=== PATIENT | female | born 1960 | race Caucasian/White ===

== ENCOUNTER → 2022-08-09 | Outpatient (CLI) | payer OTHER ==
--- NOTE | 2022-08-10 08:47 | MM ---
Reason for Exam: Screening (asymptomatic). Last mammogram was performed 6 year(s) and 3 month(s) ago. Patient History: Menarche at age 11. First Full-Term at age 18. Postmenopausal. Patient has history of breast feeding. Patient used Hormonal Contraceptives for 6 years. Risk Values: Kiara 5 year model risk: 1.4%. NCI Lifetime model risk: 5.8%. Prior Study Comparison: 04/09/2013 Bilateral Screening Mammogram, [facility]. 05/05/2015 Bilateral Screening Mammogram, [facility]. 05/10/2016 Bilateral Screening Mammogram, [facility]. Tissue Density: There are scattered fibroglandular densities. Findings: Analyzed By CAD. There is no suspicious group of microcalcifications or new suspicious mass in either breast. Chronic nodularity within the right breast. No significant change from prior exams. Overall Assessment: Benign, BI-RAD 2 Management: Screening Mammogram of both breasts in 1 year. A clinical breast exam by your physician is recommended on an annual basis and results should be correlated with mammographic findings. Electronically signed and approved by: Lion Downs D.O.
--- NOTE | 2022-08-10 08:47 | MM ---
Reason for Exam: Screening (asymptomatic). Last mammogram was performed 6 year(s) and 3 month(s) ago. Patient History: Menarche at age 11. First Full-Term at age 18. Postmenopausal. Patient has history of breast feeding. Patient used Hormonal Contraceptives for 6 years. Risk Values: Kiara 5 year model risk: 1.4%. NCI Lifetime model risk: 5.8%. Prior Study Comparison: 04/09/2013 Bilateral Screening Mammogram, [facility]. 05/05/2015 Bilateral Screening Mammogram, [facility]. 05/10/2016 Bilateral Screening Mammogram, [facility]. Tissue Density: There are scattered fibroglandular densities. Findings: Analyzed By CAD. There is no suspicious group of microcalcifications or new suspicious mass in either breast. Chronic nodularity within the right breast. No significant change from prior exams. Overall Assessment: Benign, BI-RAD 2 Management: Screening Mammogram of both breasts in 1 year. A clinical breast exam by your physician is recommended on an annual basis and results should be correlated with mammographic findings. Electronically signed and approved by: Lion Downs D.O.
== END | disposition home or self-care (01) ==
LOC: RADMAMWWP 16:23
PROVIDERS: ATTEND Obstetrics & Gynecology
DX: Z12.31 Encounter for screening mammogram for malignant neoplasm of breast (principal); Z78.0 Asymptomatic menopausal state
CPT/HCPCS: 77067

== ENCOUNTER → 2022-10-12 | Outpatient (CLI) | payer OTHER ==
[2022-10-12 18:55] LABS: HCT 42.7 % (37.2-46.3); HGB 14.1 g/dL (12.0-15.0); MCH 30.2 pg (27.0-32.0); MCV 91.4 fL (80.0-97.0); Mean Platelet Volume 11.3 fL (9.5-12.2); NRBC Per 100 WBC 0 /100 WBCS (0.0-0.0); Platelet Count 281 X 10*3/uL (140-440); RBC 4.67 X 10*6/uL (4.10-5.20); RDW 13.2 % (11.5-14.5); WBC 8.89 X 10*3/uL (4.50-10.00)
[2022-10-12 19:12] LABS: Appearance,Urine Clear (Clear); Bilirubin,Urine Negative (Negative); Blood,Urine Negative (Negative); Color,Urine Yellow (Yellow); Ketones,Urine Negative (Negative); Nitrite,Urine Negative (Negative); PH, Urine 5.5 (5.0-8.0); Specific Gravity,Urine 1.015 (1.001-1.030); Urobilinogen,Urine 0.2 (0.2,1.0)
[2022-10-12 19:27] LABS: ALT 47 U/L (8-44); AST 31 U/L (13-35); African American GFR (CKD) 94.6 (60.0-200.0); Albumin 4.6 g/dL (3.8-4.9); Albumin/Globulin Ratio 1.88 (1.60-3.17); Alkaline Phosphatase 171 U/L (41-126); BUN/Creat Ratio 20.13 Ratio (12.00-20.00); Blood Urea Nitrogen 15.5 mg/dL (9.0-27.0); Carbon Dioxide 25.3 mmol/L (20.0-27.5); Chloride 106 mmol/L (96-109); Chol/HDL Ratio 4.28 Ratio; Globulin 2.5 g/dL (1.6-3.3); Glucose 102 mg/dL (70-110); LDL Cholesterol,Calculated 131.1 mg/dL (0.0-131.0); Non-African American GFR(CKD) 81.6 (60.0-200.0); Potassium 4.3 mmol/L (3.5-5.5); Sodium 143 mmol/L (135-145); Total Protein 7.1 g/dL (6.2-8.2)
== END | disposition home or self-care (01) ==
LOC: LABWHC1 11:11
PROVIDERS: ATTEND Family Medicine
DX: Z00.00 Encounter for general adult medical examination without abnormal findings (principal); E66.9 Obesity, unspecified
CPT/HCPCS: 36415; 80053; 80061; 81003; 82306; 83036; 84443; 85027

== ENCOUNTER → 2022-10-19 | Outpatient (CLI) | payer OTHER ==
[2022-10-19 18:41] LABS: ALT 72 U/L (8-44); Alkaline Phosphatase 221 U/L (41-126)
== END | disposition home or self-care (01) ==
LOC: LABWHC1 09:54
PROVIDERS: ATTEND Family Medicine
DX: R89.9 Unspecified abnormal finding in specimens from other organs, systems and tissues (principal)
CPT/HCPCS: 36415; 84075; 84460

== ENCOUNTER → 2022-10-30 | Outpatient (CLI) | payer OTHER ==
[2022-10-30 10:48] LABS: ALT 42 U/L (8-44); AST 21 U/L (13-35); Albumin 4.7 g/dL (3.8-4.9); Albumin/Globulin Ratio 2.04 (1.60-3.17); Alkaline Phosphatase 169 U/L (41-126); Bilirubin, Conjugated <0.20 mg/dL (0.20-0.40); GGT 155 U/L (0-38); Globulin 2.3 g/dL (1.6-3.3)
== END | disposition home or self-care (01) ==
LOC: LABWHC1 07:54
PROVIDERS: ATTEND Family Medicine
DX: R89.9 Unspecified abnormal finding in specimens from other organs, systems and tissues (principal)
CPT/HCPCS: 36415; 80076; 82977

== ENCOUNTER → 2022-11-20 | Outpatient (CLI) | payer OTHER ==
[2022-11-20 15:42] LABS: Alkaline Phosphatase 166 U/L (41-126); GGT 166 U/L (0-38)
== END | disposition home or self-care (01) ==
LOC: LABWHC1 08:21
PROVIDERS: ATTEND Family Medicine
DX: R89.9 Unspecified abnormal finding in specimens from other organs, systems and tissues (principal)
CPT/HCPCS: 36415; 82977; 84075

== ENCOUNTER → 2023-11-27 | Outpatient (CLI) | payer MEDICARE, BC ==
--- NOTE | 2023-11-28 14:48 | MM ---
Reason for Exam: Screening (asymptomatic). Last mammogram was performed 1 year(s) and 4 month(s) ago. Patient History: Menarche at age 11. First Full-Term at age 18. Postmenopausal. Patient has history of breast feeding. Patient used Hormonal Contraceptives for 6 years. Risk Values: Kiara 5 year model risk: 1.5%. NCI Lifetime model risk: 5.6%. Prior Study Comparison: 05/05/2015 Bilateral Screening Mammogram, [facility]. 05/10/2016 Bilateral Screening Mammogram, [facility]. 08/09/2022 Bilateral MG screening mammo w CAD, [facility]. Tissue Density: There are scattered fibroglandular densities. Findings: Analyzed By CAD. There is no suspicious group of microcalcifications or new suspicious mass. Overall Assessment: Negative, BI-RAD 1 Management: Screening Mammogram of both breasts in [address] [facility] will attempt to contact patient to return for supplemental views and ultrasound if indicated. Patient should continue monthly self-breast exams. A clinical breast exam by your physician is recommended on an annual basis. This exam should not preclude additional follow-up of suspicious palpable abnormalities. Note on Kiara scores and lifetime risk: 1. A Kiara score greater than 3% is considered moderate risk. If this is the case, consider specialist referral to assess eligibility for a risk reducing agent. 2. If overall lifetime risk for the development of breast cancer is 20% or higher, the patient may qualify for future screening with alternating mammogram and breast MRI. Electronically signed and approved by: Homar Westbrook DO
== END | disposition home or self-care (01) ==
LOC: RADMAMWWP 07:40
PROVIDERS: ATTEND Family Medicine
DX: Z12.31 Encounter for screening mammogram for malignant neoplasm of breast (principal); Z78.0 Asymptomatic menopausal state
CPT/HCPCS: 77063; 77067

== ENCOUNTER 2025-02-17 16:06 | Inpatient (IN) | payer MEDICARE, BC ==
[2025-02-17 16:33] LABS: Basophils # (A) 0.11 10*3/uL (0.00-0.10); Basophils % (A) 1.3 %; Eosinophils # (A) 0.24 10*3/uL (0.04-0.35); Eosinophils % (A) 2.9 %; HCT 40.7 % (37.2-46.3); HGB 14.3 g/dL (12.0-15.0); Lymphocytes # (A) 1.86 10*3/uL (0.90-5.00); Lymphocytes % (A) 22.7 %; MCH 31.3 pg (27.0-32.0); MCHC 35.1 g/dL (32.0-37.0); MCV 89.1 fL (80.0-97.0); Mean Platelet Volume 11.5 fL (9.5-12.2); Monocytes # (A) 0.71 10*3/uL (0.20-1.00); Monocytes % (A) 8.7 %; Neutrophils # (A) 5.25 10*3/uL (1.80-7.70); Neutrophils % (A) 64.2 %; Platelet Count 258 10*3/uL (140-440); RBC 4.57 10*6/uL (4.10-5.20); RDW 13.4 % (11.5-14.5); WBC 8.19 10*3/uL (4.50-10.00)
[2025-02-17 16:42] LABS: ALT 34 U/L (4-34); AST 28 U/L (14-36); African American GFR (CKD) 83 (>60 ml/min/1.73 sqM); Albumin 4.5 g/dL (3.5-5.0); Alkaline Phosphatase 131 U/L (38-126); Anion Gap 12 mmol/L; Blood Urea Nitrogen 15 mg/dL (7-17); Calcium 10.1 mg/dL (8.4-10.2); Carbon Dioxide 22 mmol/L (22-30); Chloride 107 mmol/L (98-107); Glucose 97 mg/dL (74-99); Non-African American GFR(CKD) 72 (>60 ml/min/1.73 sqM); Potassium 3.6 mmol/L (3.5-5.1); Sodium 141 mmol/L (137-145); Total Bilirubin 0.9 mg/dL (0.2-1.3); Total Protein 7.1 g/dL (6.3-8.2)
[2025-02-17 16:57] LABS: INR 0.9 (<1.2); Partial Thromboplastin Time 22.1 sec (22.0-30.0); Prothrombin Time 10.1 sec (10.0-12.5)
--- NOTE | 2025-02-17 17:07 | ED ---
General Adult HPI - General Chief complaint: Arrhythmia/Palpitations Stated complaint: Abn EKG Time Seen by Provider: 02/17/25 16:40 Source: patient Limitations: no limitations - History of Present Illness Initial comments: Patient is 65-year-old female no significant past medical history presenting today at the direction of her primary care providers office after being found to be in A-fib with RVR. Patient is currently asymptomatic. She states she has had some exertional dyspnea when going upstairs for some time however is unsure how long this has been ongoing. 4. Patient was seeing her PCP today for her annual physical and was found to be in A-fib with RVR. Patient denies dizziness, lightheadedness, palpitations, shortness of breath, chest pain, recent fevers or chills, vomiting, diarrhea, melena, hematochezia, abdominal pain, leg swelling. She is a non-smoker. Rarely uses alcohol. Denies illicit drug use. No recent travel surgeries or hospitalizations. No history of cancer. No history clotting disorders. - Related Data Previous Rx's Medication Instructions Recorded Apixaban [Eliquis] 5 mg PO BID #60 tab 02/20/25 Losartan [Cozaar] 50 mg PO HS #30 tab 02/20/25 Metoprolol Tartrate [Lopressor] 50 mg PO BID #60 tab 02/20/25 Spironolactone [Aldactone] 25 mg PO DAILY #30 tab 02/20/25 Allergies Allergy/AdvReac Type Severity Reaction Status Date / Time No Known Allergies Allergy Verified 02/17/25 16:58 Review of Systems ROS Statement: Those systems with pertinent positive or pertinent negative responses have been documented in the HPI. ROS Other: All systems not noted in ROS Statement are negative. Past Medical History Past Medical History: No Reported History History of Any Multi-Drug Resistant Organisms: None Reported Past Surgical History: Cholecystectomy, Tubal Ligation Additional Past Surgical History / Comment(s): cervical fusion Past Psychological History: No Psychological Hx Reported Past Alcohol Use History: None Reported Past Drug Use History: None Reported General Exam - General Exam Comments Initial Comments: PE: CONSTITUTIONAL: [no apparent distress, well appearing] SKIN: [warm, dry, no jaundice, hives or petechiae] EYES:[ pupils are equally round, extraocular movements intact without nystagmus, clear conjunctiva, non-icteric sclera] HENT: [normocephalic, atraumatic, moist mucus membranes, oropharynx clear without exudates] NECK: , [Full range of motion, normal appearance] PULMONARY: [clear to auscultation without wheezes, rhonchi, or rales, normal excursion, no accessory muscle use and no stridor] CARDIOVASCULAR:[tachcyardia, irregularly irregular rate and rhythm, normal S1 and S2. No appreciated murmurs, rubs or gallops. Strong radial pulses with intact distal perfusion. No lower extremity edema] GASTROINTESTINAL: [soft, active bowel sounds throughout, non-tender, non- distended, no palpable masses, no rebound or guarding. No hepatosplenomegaly] GENITOURINARY: MUSCULOSKELETAL: [Extremities have no gross deformity, no edema, redness, or swelling. No calf swelling ] NEUROLOGIC: [_a/o x 3, GCS 15, normal mentation and speech. Moves all extremities x 4 without motor or sensory deficit] PSYCHIATRIC:[ _normal mood and affect, thought process is clear and linear] Limitations: no limitations Course Vital Signs 02/17/25 02/17/25 02/18/25 16:12 17:38 02:00 Temperature 98.2 F Pulse Rate 122 H 109 H 79 Respiratory 18 12 17 Rate Blood Pressure 161/92 162/104 149/109 O2 Sat by Pulse 94 L 95 95 Oximetry 02/18/25 02/18/25 02/18/25 06:44 07:26 09:11 Temperature Pulse Rate 87 86 90 Respiratory 17 16 14 Rate Blood Pressure 150/114 163/113 150/98 O2 Sat by Pulse 94 L 94 L 96 Oximetry 02/18/25 11:07 Temperature Pulse Rate 89 Respiratory 18 Rate Blood Pressure 157/99 O2 Sat by Pulse 98 Oximetry EKG Findings - EKG Comments: EKG Findings:: A-fib with RVR, rate 113 bpm, QT/QTc 324/391 ms, normal axis, no clear ST elevations or depressions Medical Decision Making - Medical Decision Making Was pt. sent in by a medical professional or institution (, PA, LAMP INSPECTOR, urgent care, hospital, or half-way...) When possible be specific @ -[Patient was sent in by her PCP Dr. Hay Did you speak to anyone other than the patient for history (EMS, parent, family, police, friend...)? What history was obtained from this source @ -No Did you review nursing and triage notes (agree or disagree)? Why? @ -I reviewed and agree with nursing and triage notes Were old charts reviewed (outside hosp., previous admission, EMS record, old EKG, old radiological studies, urgent care reports/EKG's, half-way records)? Report findings @ -Medical records reviewed Differential Diagnosis (chest pain, altered mental status, abdominal pain women, abdominal pain men, vaginal bleeding, weakness, fever, dyspnea, syncope, headache, dizziness, GI bleed, back pain, seizure, CVA, palpatations, mental health, musculoskeletal)? @Differential Palpitations Ventricular arrhythmias, atrial arrhythmias, myocardial infarction, anemia, thyrotoxicosis, electrolyte imbalance, hypokalemia, pulmonary embolism, pulmonary disease, drugs, alcohol, anxiety, stress.... This is not meant to be an all-inclusive list. EKG interpreted by me (3pts min.). @ -As above X-rays interpreted by me (1pt min.). @ -None done CT interpreted by me (1pt min.). @ -Personally reviewed CT chest, I see no evidence of pulmonary embolism, bilateral lower lobe patchy opacities noted, I agree with radiologist interpretation U/S interpreted by me (1pt. min.). @ -None done What testing was considered but not performed or refused? (CT, X-rays, U/S, labs)? Why? @ -None What meds were considered but not given or refused? Why? @ -None Did you discuss the management of the patient with other professionals (professionals i.e. , PA, LAMP INSPECTOR, lab, RT, psych nurse, director social, emergency room technician, teacher, officer lieutenant, pillowcase cutter)? Give summary @ -No Was smoking cessation discussed for >3mins.? @ -No Was critical care preformed (if so, how long)? @Yes 35 minutes Were there social determinants of health that impacted care today? How? (Homelessness, low income, unemployed, alcoholism, drug addiction, transportation, low edu. Level, literacy, decrease access to med. care, retirement, rehab)? @ -No Was there de-escalation of care discussed even if they declined (Discuss DNR or withdrawal of care, Hospice)? @ -No What co-morbidities impacted this encounter? (DM, HTN, Smoking, COPD, CAD, Cancer, CVA, ARF, Chemo, Hep., AIDS, mental health diagnosis, sleep apnea, morbid obesity)? @ -None Was patient admitted / discharged? Hospital course, mention meds given and route, prescriptions, significant lab abnormalities, going to OR and other pertinent info. @ -Admission- Patient is a previously healthy 65 y/o female presenting at the direction of her PCP after being found to be in new onset afib, with RvR. Will be given weight based cardizem bolus of 24 mg, cardizem gtt. On reassessment, patient's rate is currently controlled on a Cardizem infusion of 5 mg/h, Cardizem bolus was not required. Labs are significant for D-dimer 0.63. CT PE study is obtained. Patient be given oral Cardizem of 30 mg. Labs reviewed. Grossly within normal limits. Abnormal values not concerning for acute pathology related to presenting complaint. CT showed possible bilateral atypical PNA however pt is not having symptoms consistent with this. Updated patient to findings. Case discussed with Dr. Power, kindly accepted patient for admission. Undiagnosed new problem with uncertain prognosis? @ -No Drug Therapy requiring intensive monitoring for toxicity (Heparin, Nitro, Insulin, Cardizem)? cardizem, heparin Were any procedures done? @ -No Diagnosis/symptom? atrial fibrillation with RvR Acute, or Chronic, or Acute on Chronic? @acute Uncomplicated (without systemic symptoms) or Complicated (systemic symptoms)? complicated Side effects of treatment? @ -No Exacerbation, Progression, or Severe Exacerbation? @ -No Poses a threat to life or bodily function? How? (Chest pain, [place], [place], pneumonia, PE, COPD, DKA, ARF, appy, cholecystitis, CVA, Diverticulitis, Homicidal, Suicidal, threat to staff... and all critical care pts) @Yes if left untreated could lead to cardiac failure and - Lab Data Result diagrams: 02/17/25 16:21 02/17/25 16:21 Lab Results 02/17/25 02/17/25 02/17/25 Range/Units 16:21 16:21 16:21 WBC 8.19 (4.50-10.00) 10*3/uL RBC 4.57 (4.10-5.20) 10*6/uL Hgb 14.3 (12.0-15.0) g/dL Hct 40.7 (37.2-46.3) % MCV 89.1 (80.0-97.0) fL MCH 31.3 (27.0-32.0) pg MCHC 35.1 (32.0-37.0) g/dL Plt Count 258 (140-440) 10*3/uL MPV 11.5 (9.5-12.2) fL Immature Gran % (Auto) 0.2 % Neutrophils % 64.2 % Lymphocytes % 22.7 % Monocytes % 8.7 % Eosinophils % 2.9 % Basophils % 1.3 % Immature Gran # 0.02 (0.00-0.04) 10*3/uL Neutrophils # 5.25 (1.80-7.70) 10*3/uL Lymphocytes # 1.86 (0.90-5.00) 10*3/uL Monocytes # 0.71 (0.20-1.00) 10*3/uL Eosinophils # 0.24 (0.04-0.35) 10*3/uL Basophils # 0.11 H (0.00-0.10) 10*3/uL PT 10.1 (10.0-12.5) sec INR 0.9 (<1.2) APTT 22.1 (22.0-30.0) sec D-Dimer (<0.60) mg/L FEU Sodium 141 (137-145) mmol/L Potassium 3.6 (3.5-5.1) mmol/L Chloride 107 (98-107) mmol/L Carbon Dioxide 22 (22-30) mmol/L Anion Gap 12 mmol/L BUN 15 (7-17) mg/dL Creatinine 0.84 (0.52-1.04) mg/dL Est GFR (CKD-EPI)AfAm 83 (>60 ml/min/1.73 sqM) Est GFR (CKD-EPI)NonAf 72 (>60 ml/min/1.73 sqM) Glucose 97 (74-99) mg/dL Calcium 10.1 (8.4-10.2) mg/dL Magnesium 2.0 (1.6-2.3) mg/dL Total Bilirubin 0.9 (0.2-1.3) mg/dL AST 28 (14-36) U/L ALT 34 (4-34) U/L Alkaline Phosphatase 131 H (38-126) U/L Troponin I (0.000-0.034) ng/mL NT-Pro-B Natriuret Pep pg/mL Total Protein 7.1 (6.3-8.2) g/dL Albumin 4.5 (3.5-5.0) g/dL TSH (0.465-4.680) mIU/L 02/17/25 02/17/25 02/17/25 Range/Units 16:21 16:21 16:21 WBC (4.50-10.00) 10*3/uL RBC (4.10-5.20) 10*6/uL Hgb (12.0-15.0) g/dL Hct (37.2-46.3) % MCV (80.0-97.0) fL MCH (27.0-32.0) pg MCHC (32.0-37.0) g/dL Plt Count (140-440) 10*3/uL MPV (9.5-12.2) fL Immature Gran % (Auto) % Neutrophils % % Lymphocytes % % Monocytes % % Eosinophils % % Basophils % % Immature Gran # (0.00-0.04) 10*3/uL Neutrophils # (1.80-7.70) 10*3/uL Lymphocytes # (0.90-5.00) 10*3/uL Monocytes # (0.20-1.00) 10*3/uL Eosinophils # (0.04-0.35) 10*3/uL Basophils # (0.00-0.10) 10*3/uL PT (10.0-12.5) sec INR (<1.2) APTT (22.0-30.0) sec D-Dimer 0.63 H (<0.60) mg/L FEU Sodium (137-145) mmol/L Potassium (3.5-5.1) mmol/L Chloride (98-107) mmol/L Carbon Dioxide (22-30) mmol/L Anion Gap mmol/L BUN (7-17) mg/dL Creatinine (0.52-1.04) mg/dL Est GFR (CKD-EPI)AfAm (>60 ml/min/1.73 sqM) Est GFR (CKD-EPI)NonAf (>60 ml/min/1.73 sqM) Glucose (74-99) mg/dL Calcium (8.4-10.2) mg/dL Magnesium (1.6-2.3) mg/dL Total Bilirubin (0.2-1.3) mg/dL AST (14-36) U/L ALT (4-34) U/L Alkaline Phosphatase (38-126) U/L Troponin I <0.012 (0.000-0.034) ng/mL NT-Pro-B Natriuret Pep 1440 pg/mL Total Protein (6.3-8.2) g/dL Albumin (3.5-5.0) g/dL TSH 0.867 (0.465-4.680) mIU/L Disposition Clinical Impression: New onset atrial fibrillation Disposition: ADMITTED IP TO THIS HOSP Condition: Stable
[2025-02-17 17:16] LABS: NT-Pro-B-Type Natriuretic Pept 1440 pg/mL
[2025-02-17] MEDS: DILTIAZEM 5 MG/ML 5 ML VIAL IVP STA ×2 (17:27→18:01)
[2025-02-17] MEDS: SODIUM CHLORIDE 0.9% 500 ML 500 ML IV STA (17:41)
[2025-02-17] MEDS: HEPARIN SODIUM 1,000 UN/ML (10ML VL) IV ONE (17:51)
[2025-02-17] MEDS: HEPARIN SOD,PORK IN 0.45% NACL 25,000 UNIT in 0.45% NACL 1 250ML.BAG IV SCH (17:58)
[2025-02-17] MEDS: DILTIAZEM 125 MG in DEXTROSE 5% IN WATER 100 ML IV SCH (18:02)
--- NOTE | 2025-02-17 19:05 | CT ---
EXAMINATION TYPE: CT chest angio for PE CT DLP: 421.8 mGycm, Automated exposure control for dose reduction was used. DATE OF EXAM: 02/17/2025 6:48 PM COMPARISON: None CLINICAL INDICATION:Female, 65 years old with history of elevated dimer, tachycardia; elevated dimer, tachycardia TECHNIQUE/CONTRAST: CTA scan of the thorax is performed with IV Contrast, patient injected with 66ml mL of Isovue 370, pu lmonary embolism protocol. MIP images are created and reviewed. FINDINGS: Pulmonary Artery: There is no evidence for a filling defect within the pulmonary vasculature to sugge st acute pulmonary embolism. The pulmonary artery is of normal size. Lungs/Pleura: No pleural effusion or pneumothorax. Bibasilar subpleural groundglass opacities. No con solidation. Airway: Large airways are patent. Heart: Cardiomegaly is demonstrated.No pericardial effusion. No significant coronary artery calcifica tions. Vasculature: No evidence of aortic aneurysm. Mild atherosclerotic calcification of the aorta and its branches. Mediastinum: Enlarged subcarinal lymph node measuring up to 1.8 cm. Enlarged right hilar lymph node m easuring up to 1.4 cm. Enlarged left hilar lymph node measuring up to 1.2 cm. Musculoskeletal: Mild degenerative disc disease changes are present throughout the thoracolumbar spin e.. Bilateral shoulder arthropathy with right-sided calcified loose bodies. No acute osseous abnormal ity. Soft Tissues: Unremarkable. Lower neck: No significant findings. Upper Abdomen: Gallbladder is surgically absent. Small hiatal hernia. IMPRESSION: 1. No evidence of pulmonary embolism. 2. Bibasilar subpleural groundglass opacities suggesting an atypical pulmonary infection versus pulmo nary edema. 3. Reactive mediastinal lymphadenopathy likely secondary to #2. [facility], , 02/17/2025 7:03 PM
[2025-02-17] MEDS ORDERED: traMADol 50 MG TAB PO PRN (20:14)
[2025-02-17] MEDS ORDERED: CALCIUM CARBONATE 500 MG CHEWABLE PO PRN (20:14)
[2025-02-17] MEDS ORDERED: MAG HYDROX/AL HYDROX/SIMETH 30 ML CUP PO PRN (20:14)
[2025-02-17] MEDS ORDERED: NALOXONE 0.4 MG/ML 1 ML VIAL IV PRN (20:14)
[2025-02-17] MEDS ORDERED: ONDANSETRON 4 MG/2 ML VIAL IVP PRN (20:14)
[2025-02-17] MEDS: DILTIAZEM ORAL 30 MG TAB PO STA (20:20)
[2025-02-17] MEDS: FAMOTIDINE 20 MG TAB PO SCH (20:21)
[2025-02-17] MEDS: SODIUM CHLORIDE 0.9% 1,000 ML IV SCH (20:33)
[2025-02-18] MEDS: HEPARIN SODIUM 1,000 UN/ML (10ML VL) IV PRN (00:44)
[2025-02-18] MEDS: ACETAMINOPHEN TAB 325 MG TAB PO PRN (04:16)
[2025-02-18] MEDS ORDERED: LOSARTAN 25 MG TAB PO SCH (09:00)
[2025-02-18] MEDS: APIXABAN 5 MG TAB PO SCH (09:09)
[2025-02-18] MEDS: METOPROLOL TARTRATE 25 MG TAB PO SCH (09:09)
[2025-02-18] MEDS: LOSARTAN 50 MG TAB PO SCH (09:09)
--- NOTE | 2025-02-18 09:22 | P.CRDCN ---
History of Present Illness History of present illness: HISTORY OF PRESENT ILLNESS: This is a 65-year-old female with no significant past medical history. 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 We have been asked to see the patient in consultation for new onset atrial fibrillation. Patient examined at the bedside in the ER. Patient states that she was at her primary care physician's office yesterday for an annual routine visit. She denied having any symptoms of shortness of breath, chest pain, dizziness, or palpitations. Patient was found to be in A-fib with RVR. Additionally patient was found to have elevated blood pressures with a systolic greater than 150. Patient was directed to come to the emergency room. The patient denies any known history of atrial fibrillation. She remains in atrial fibrillation at the time of examination with a heart rate in the 80s. Blood pressure remains elevated. DIAGNOSTICS: - EKG reveals A-fib with RVR. - Chest CTA: Negative for pulmonary embolism. Bibasilar subpleural groundglass opacities suggesting atypical pulmonary infection versus pulmonary edema. Reactive mediastinal lymphadenopathy likely secondary to #2. - Laboratory data: WBC 8.19. Hemoglobin 14.3. Platelet count 258. D-dimer 0.63. Sodium 140. Potassium 3.6. BUN 15. Creatinine 0.84. Troponin negative x 3. proBNP 1440. TSH 0.867. - Current home cardiac medications include none. - No previous echocardiogram, stress test, or cardiac catheterization available in EMR for review REVIEW OF SYSTEMS: At the time of my exam: CONSTITUTIONAL: Denies fever or chills. HEENT: Denies blurred vision, vision changes, or eye pain. Denies hemoptysis CARDIOVASCULAR: Denies chest pain. Denies orthopnea. Denies PND. Denies palpitations RESPIRATORY: Denies shortness of breath. GASTROINTESTINAL: Denies abdominal pain. Denies nausea or vomiting. HEMATOLOGIC: Denies bleeding disorders. GENITOURINARY: Denies any blood in urine. SKIN: Denies pruitis. Denies rash. PHYSICAL EXAM: VITAL SIGNS: Reviewed. GENERAL: Well-developed in no acute distress. HEENT: Head is normocephalic. Pupils are equal, round. Sclerae anicteric. Mucous membranes of the mouth are moist. Neck supple. No JVD or thyromegaly LUNGS: Respirations even and unlabored. Lungs essentially clear to auscultation bilaterally. HEART: Irregular rate and rhythm. S1 and S2 heard. ABDOMEN: Soft. Nondistended. Nontender. EXTREMITIES: Normal range of motion. No clubbing or cyanosis. Peripheral pulses intact. No lower extremity edema NEUROLOGIC: Awake and alert. Oriented x 3. ASSESSMENT: New onset atrial fibrillation with RVR Hypertension Obesity: BMI 33.7 PLAN: Obtain 2D echo to assess cardiac structure and function TSH checked and within normal limits Add metoprolol to tartrate 25 mg twice a day Add losartan 50 mg daily Continue to monitor blood pressure Discontinue IV heparin. Begin Eliquis 5 mg twice a day. Discontinue IV Cardizem Continue telemetry monitoring Further recommendations pending patient course Nurse practitioner note has been reviewed by physician. Signing provider agrees with the documented findings, assessment, and plan of care documented by SAMPLE CHECKER as a scribe. Past Medical History Past Medical History: No Reported History History of Any Multi-Drug Resistant Organisms: None Reported Past Surgical History: Cholecystectomy, Tubal Ligation Additional Past Surgical History / Comment(s): cervical fusion Past Psychological History: No Psychological Hx Reported Past Alcohol Use History: None Reported Past Drug Use History: None Reported Medications and Allergies Home Medications Medication Instructions Recorded Confirmed Type Potassium Chloride ER [K-Dur 10] 10 meq PO DAILY 02/17/25 02/17/25 History Allergies Allergy/AdvReac Type Severity Reaction Status Date / Time No Known Allergies Allergy Verified 02/17/25 16:58 Physical Exam Vitals: Vital Signs Temp Pulse Resp BP Pulse Ox 02/18/25 07:26 86 16 163/113 94 L 02/18/25 06:44 87 17 150/114 94 L 02/18/25 02:00 79 17 149/109 95 02/17/25 17:38 109 H 12 162/104 95 02/17/25 16:12 98.2 F 122 H 18 161/92 94 L Intake and Output 02/17/25 02/18/25 02/18/25 22:59 06:59 14:59 Intake Total 66.667 Balance 66.667 Intake: Intake, IV Titration 66.667 Amount Heparin Sod,Pork in 0.45% 66.667 NaCl 25,000 unit In 0.45 % NaCl 1 250ml.bag @ 10. 254 UNITS/KG/HR 10 mls/hr IV .Q24H [facility] Rx#: [id number] Other: Weight 97.522 kg Results 02/17/25 16:21 02/17/25 16:21 Cardiac Enzymes 02/17/25 02/17/25 02/17/25 Range/Units 16:21 16:21 20:35 AST 28 (14-36) U/L Troponin I <0.012 <0.012 (0.000-0.034) ng/mL 02/17/25 Range/Units 23:52 AST (14-36) U/L Troponin I <0.012 (0.000-0.034) ng/mL Coagulation 02/17/25 02/17/25 02/18/25 Range/Units 16:21 23:52 05:48 PT 10.1 (10.0-12.5) sec APTT 22.1 33.6 H 42.4 H (22.0-30.0) sec CBC 02/17/25 Range/Units 16:21 WBC 8.19 (4.50-10.00) 10*3/uL RBC 4.57 (4.10-5.20) 10*6/uL Hgb 14.3 (12.0-15.0) g/dL Hct 40.7 (37.2-46.3) % Plt Count 258 (140-440) 10*3/uL Comprehensive Metabolic Panel 02/17/25 Range/Units 16:21 Sodium 141 (137-145) mmol/L Potassium 3.6 (3.5-5.1) mmol/L Chloride 107 (98-107) mmol/L Carbon Dioxide 22 (22-30) mmol/L BUN 15 (7-17) mg/dL Creatinine 0.84 (0.52-1.04) mg/dL Glucose 97 (74-99) mg/dL Calcium 10.1 (8.4-10.2) mg/dL AST 28 (14-36) U/L ALT 34 (4-34) U/L Alkaline Phosphatase 131 H (38-126) U/L Total Protein 7.1 (6.3-8.2) g/dL Albumin 4.5 (3.5-5.0) g/dL Current Medications Generic Name Dose Route Start Last Admin Trade Name Freq PRN Reason Stop Dose Admin Acetaminophen 650 mg 02/17/25 20:14 02/18/25 04:16 Acetaminophen Tab 325 Mg Tab PO 650 mg Q6HR PRN Administration Mild Pain or Fever > 100.5 Al Hydroxide/Mg Hydroxide 15 ml 02/17/25 20:14 Mag Hydrox/Al Hydrox/Simeth 30 Ml Cup PO Q6HR PRN Indigestion Calcium Carbonate/Glycine 1,000 mg 02/17/25 20:14 Calcium Carbonate 500 Mg Chewable PO Q4HR PRN Dyspepsia Famotidine 20 mg 02/17/25 21:00 02/17/25 20:21 Famotidine 20 Mg Tab PO 20 mg BID JUDAH Administration Heparin Sodium (Porcine) 0 unit 02/18/25 00:43 02/18/25 00:44 Heparin Sodium 1,000 Un/Ml (10ml Vl) IV 2,437 unit PER PROTOCOL PRN Administration Low PTT Protocol Diltiazem HCl 125 mg/ Dextrose 125 mls @ 5 mls/hr 02/17/25 17:30 02/17/25 18:02 /Water IV 5 mg/hr .Q24H JUDAH 5 mls/hr Administration Protocol 5 MG/HR Heparin Sodium/Sodium Chloride 250 mls @ 10 mls/hr 02/17/25 17:15 02/18/25 00:38 25,000 unit/ Sodium Chloride IV 12.254 units/kg/hr .Q24H JUDAH 11.95 mls/hr Titration Protocol 10.254 UNITS/KG/HR Naloxone HCl 0.2 mg 02/17/25 20:14 Naloxone 0.4 Mg/Ml 1 Ml Vial IV Q2M PRN Opioid Reversal Ondansetron HCl 4 mg 02/17/25 20:14 Ondansetron 4 Mg/2 Ml Vial IVP Q8HR PRN Nausea And Vomiting Tramadol HCl 50 mg 02/17/25 20:14 Tramadol 50 Mg Tab PO Q6H PRN Moderate Pain (Scale 4 to 6) Intake and Output 02/17/25 02/18/25 02/18/25 22:59 06:59 14:59 Intake Total 66.667 Balance 66.667 Intake: Intake, IV Titration 66.667 Amount Heparin Sod,Pork in 0.45% 66.667 NaCl 25,000 unit In 0.45 % NaCl 1 250ml.bag @ 10. 254 UNITS/KG/HR 10 mls/hr IV .Q24H [facility] Rx#: [id number] Other: Weight 97.522 kg 02/17/25 16:21 02/17/25 16:21
--- NOTE | 2025-02-18 15:24 | P.HPIM ---
History of Present Illness H&P Date: 02/18/25 Chief Complaint: A-fib with rapid rate This is a very pleasant 65-year-old patient who follows with Dr. Hay. Unremarkable past medical history. Patient had gone to her family doctor with some exertional dyspnea going up the stairs for some time. She was found to be in A-fib with rapid ventricular rate. Denies any chest pain or palpitations. No prior history of A-fib. Patient in the ER was started on IV heparin and IV Cardizem drip. Patient is accompanied by a friend in the ER room. Denies any prior cardiac history. No edema. No chest pain. Review of systems: GEN.: None EYES: None HEENT: None NECK: None RESPIRATORY: Some shortness of breath with exertion e CARDIOVASCULAR: None GASTROINTESTINAL: None GENITOURINARY: None MUSCULOSKELETAL: None LYMPHATICS: None HEMATOLOGICAL: None PSYCHIATRY: None NEUROLOGICAL: None Social history: Retired from working at [employer] in [employer]. Denies any history of smoking alcohol. Lives with her Physical examination: VITAL SIGNS: 98.2, 122, 18, 161/92, 94% room air upon presentation GENERAL: BMI 33.7, laying in bed awake comfortable. EYES: Pupils equal. Conjunctiva adelaida l. HEENT: External appearance of nose and ears normal, oral cavity grossly normal. NECK: JVD not raised; masses not palpable. HEART: Heart sounds are regular; no edema]. LUNGS: Respiratory rate normal; clear to auscultation. ABDOMEN: Soft, nontender, liver spleen not palpable, no masses palpable. PSYCH: Alert and oriented x3; mood and affect adelaida l. MUSCULOSKELETAL:No Clubbing/cyanosis;muscles-grossly intact NEUROLOGICAL: Cranial nerves grossly intact; no facial asymmetry, power and sensation grossly intact. LYMPHATICS: No lymph nodes palpable in the axilla and neck INVESTIGATIONS, reviewed in the clinical context: February 17, 2025: White count 8.1 hemoglobin 14.3 platelets 258 sodium 141 potassium 3.6 creatinine 0.84 Troponin I less than 0.012 x 3 proBNP 1440 TSH 0.867 EKG tracing personally reviewed by me-atrial fibrillation. Rate 113 CT angio chest: Negative PE. Bibasilar subpleural groundglass opacities. Reactive mediastinal lymphadenopathy. Assessment plan: - Atrial fibrillation, likely persistent given that patient's been short of breath with exertion for some time. Uncontrolled on presentation IV Cardizem drip. IV heparin. 2D echo. Cardiology consulted - IV heparin monitoring Follow protocol - Obesity BMI 33.7 Outpatient weight loss measures Care was discussed with the patient and the friend at the bedside. Questions answered. Past Medical History Past Medical History: No Reported History History of Any Multi-Drug Resistant Organisms: None Reported Past Surgical History: Cholecystectomy, Tubal Ligation Additional Past Surgical History / Comment(s): cervical fusion Past Psychological History: No Psychological Hx Reported Past Alcohol Use History: None Reported Past Drug Use History: None Reported Medications and Allergies Home Medications Medication Instructions Recorded Confirmed Type Potassium Chloride ER [K-Dur 10] 10 meq PO DAILY 02/17/25 02/17/25 History Allergies Allergy/AdvReac Type Severity Reaction Status Date / Time No Known Allergies Allergy Verified 02/17/25 16:58 Physical Exam Vitals: Vital Signs Temp Pulse Resp BP Pulse Ox 02/18/25 09:11 90 14 150/98 96 02/18/25 07:26 86 16 163/113 94 L 02/18/25 06:44 87 17 150/114 94 L 02/18/25 02:00 79 17 149/109 95 02/17/25 17:38 109 H 12 162/104 95 02/17/25 16:12 98.2 F 122 H 18 161/92 94 L Intake and Output 02/17/25 02/18/25 02/18/25 22:59 06:59 14:59 Intake Total 66.667 Balance 66.667 Intake: Intake, IV Titration 66.667 Amount Heparin Sod,Pork in 0.45% 66.667 NaCl 25,000 unit In 0.45 % NaCl 1 250ml.bag @ 10. 254 UNITS/KG/HR 10 mls/hr IV .Q24H [facility] Rx#: [id number] Other: Weight 97.522 kg Results CBC & Chem 7: 02/17/25 16:21 02/17/25 16:21 Labs: Abnormal Lab Results - Last 24 Hours (Table) 02/17/25 02/17/25 02/17/25 Range/Units 16:21 16:21 16:21 Basophils # 0.11 H (0.00-0.10) 10*3/uL APTT (22.0-30.0) sec D-Dimer 0.63 H (<0.60) mg/L FEU Alkaline Phosphatase 131 H (38-126) U/L 02/17/25 02/18/25 Range/Units 23:52 05:48 Basophils # (0.00-0.10) 10*3/uL APTT 33.6 H 42.4 H (22.0-30.0) sec D-Dimer (<0.60) mg/L FEU Alkaline Phosphatase (38-126) U/L
--- NOTE | 2025-02-19 13:10 | P.PN ---
Subjective HISTORY OF PRESENT ILLNESS: This is a 65-year-old female with no significant past medical history. 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 We have been asked to see the patient in consultation for new onset atrial fibrillation. Patient examined at the bedside in the ER. Patient states that she was at her primary care physician's office yesterday for an annual routine visit. She denied having any symptoms of shortness of breath, chest pain, dizziness, or palpitations. Patient was found to be in A-fib with RVR. Additionally patient was found to have elevated blood pressures with a systolic greater than 150. Patient was directed to come to the emergency room. The patient denies any known history of atrial fibrillation. She remains in atrial fibrillation at the time of examination with a heart rate in the 80s. Blood pressure remains elevated. DIAGNOSTICS: - EKG reveals A-fib with RVR. - Chest CTA: Negative for pulmonary embolism. Bibasilar subpleural groundglass opacities suggesting atypical pulmonary infection versus pulmonary edema. Reactive mediastinal lymphadenopathy likely secondary to #2. - Laboratory data: WBC 8.19. Hemoglobin 14.3. Platelet count 258. D-dimer 0.63. Sodium 140. Potassium 3.6. BUN 15. Creatinine 0.84. Troponin negative x 3. proBNP 1440. TSH 0.867. - Current home cardiac medications include none. - No previous echocardiogram, stress test, or cardiac catheterization available in EMR for review 02/19/2025 Patient examined this morning at the bedside. Patient currently denies chest pain or pressure. She denies shortness of breath. Patient remains in atrial fibrillation with controlled ventricular rate. 2D echo remains pending. Blood pressure stable with a recent reading of 139/95. PHYSICAL EXAM: VITAL SIGNS: Reviewed. GENERAL: Well-developed in no acute distress. HEENT: Head is normocephalic. Pupils are equal, round. Sclerae anicteric. Mucous membranes of the mouth are moist. Neck supple. No JVD or thyromegaly LUNGS: Respirations even and unlabored. Lungs essentially clear to auscultation bilaterally. HEART: Irregular rate and rhythm. S1 and S2 heard. ABDOMEN: Soft. Nondistended. Nontender. EXTREMITIES: Normal range of motion. No clubbing or cyanosis. Peripheral pulses intact. No lower extremity edema NEUROLOGIC: Awake and alert. Oriented x 3. ASSESSMENT: New onset atrial fibrillation with RVR Hypertension Obesity: BMI 33.7 PLAN: 2D echo ordered. Await results. Continue anticoagulation with Eliquis 5 mg twice a day Continue losartan and metoprolol Continue telemetry monitoring Further recommendations pending patient course Nurse practitioner note has been reviewed by physician. Signing provider agrees with the documented findings, assessment, and plan of care documented by POWER DISTRIBUTOR as a scribe. Objective - Vital Signs Vital signs: Vital Signs Temp 98 F 02/19/25 12:00 Pulse 80 02/19/25 12:00 Resp 18 02/19/25 12:00 BP 139/95 02/19/25 12:00 Pulse Ox 91 L 02/19/25 12:00 FiO2 Intake & Output 02/18/25 02/19/25 02/19/25 18:59 06:59 18:59 Intake Total 10 180 Balance 10 180 Weight 97.522 kg 97.3 kg Intake: IV 10 Invasive Line 1 10 Oral 180 Other: Voiding Method Toilet # Voids 2 1 - Labs CBC & Chem 7: 02/17/25 16:21 02/17/25 16:21
--- NOTE | 2025-02-19 13:21 | CA ---
Transthoracic Echo Report Name: Usha Strauss Age: 65 Gender: F : 1960 Exam Date: 02/19/2025 09:47 Exam Location: [facility] Ht (in): 67 Wt (lb): 215 Ordering Physician: Oziel Power MD Attending/Referring Phys: Deputy Court Clerk Herminia Gamez RDCS Procedure CPT: Indications: atrial fibrillation Cardiac Hx: A-fib Technical Quality: Good Contrast 1: Total Dose (mL): Contrast 2: Total Dose (mL): MEASUREMENTS (Male / Female) Normal Values 2D ECHO LV Diastolic Diameter PLAX 4.4 cm 4.2 - 5.9 / 3.9 - 5.3 cm LV Systolic Diameter PLAX 3.4 cm IVS Diastolic Thickness 1.3 cm 0.6 - 1.0 / 0.6 - 0.9 cm LVPW Diastolic Thickness 1.2 cm 0.6 - 1.0 / 0.6 - 0.9 cm LV Relative Wall Thickness 0.6 LVOT Diameter 1.9 cm LV Diastolic Volume MOD BP 101.9 cm??? 67 - 155 / 56 - 104 cm??? LV Systolic Volume MOD BP 58.9 cm??? 22 - 58 / 19 - 49 cm??? LV Ejection Fraction MOD BP 42.3 % >= 55 % LV Cardiac Index MOD BP 1894.3 cm???/min???m??? LV Diastolic Volume MOD 4C 86.3 cm??? LV Systolic Volume MOD 4C 53.7 cm??? LV Ejection Fraction MOD 4C 37.7 % LV Cardiac Index MOD 4C 1431.7 cm???/min???m??? LV Diastolic Length 4C 7.0 cm LV Systolic Length 4C 6.6 cm LV Diastolic Volume MOD 2C 106.7 cm??? LV Systolic Volume MOD 2C 64.4 cm??? LV Ejection Fraction MOD 2C 39.7 % LV Cardiac Index MOD 2C 1860.7 cm???/min???m??? LV Diastolic Length 2C 8.0 cm LV Systolic Length 2C 6.4 cm LA Volume 60.4 cm??? 18 - 58 / 22 - 52 cm??? LA Volume Index 27.7 cm???/m??? 16 - 28 cm???/m??? DOPPLER AV Peak Velocity 106.1 cm/s AV Peak Gradient 4.5 mmHg AV Mean Velocity 79.6 cm/s AV Mean Gradient 2.7 mmHg AV Velocity Time Integral 20.9 cm LVOT Peak Velocity 75.9 cm/s LVOT Peak Gradient 2.3 mmHg LVOT Velocity Time Integral 13.4 cm LVOT Stroke Volume 36.2 cm??? LVOT Stroke Volume Index 17.4 ml/m??? LVOT Cardiac Index 1593.3 cm???/min???m??? AV Area Cont Eq vti 1.7 cm??? AV Area Cont Eq pk 1.9 cm??? MR Flow Rate PISA 82.2 cm???/s TR Peak Velocity 296.2 cm/s TR Peak Gradient 35.1 mmHg Right Ventricular Systolic Press 44.4 mmHg PV Peak Velocity 55.1 cm/s PV Peak Gradient 1.2 mmHg FINDINGS Left Ventricle Left ventricular ejection fraction is estimated at 40 % with beat to beat variability. Moderately increased septal wall thickness. Mildly increased posterior wall thickness. Mildly increased left ventricular systolic volume. Moderately decreased left ventricular ejection fraction. Reduced global left ventricular systolic function. Right Ventricle Mild right ventricular dilatation. Normal right ventricular global systolic function. Mild to moderate pulmonary hypertension. Right Atrium Normal right atrial size. Left Atrium Mildly increased left atrial volume. Mitral Valve Mitral valve thickened. No evidence for mitral valve prolapse. No mitral stenosis. Moderate mitral regurgitation. Aortic Valve Trileaflet aortic valve. No aortic valve stenosis or regurgitation. Tricuspid Valve Structurally normal tricuspid valve. No tricuspid stenosis. Mild tricuspid regurgitation. Pulmonic Valve Structurally normal pulmonic valve. No pulmonic stenosis. Trace pulmonic regurgitation. Pericardium No pericardial effusion. Aorta Normal size aortic root and proximal ascending aorta. CONCLUSIONS Left ventricular ejection fraction 40% RVSP 44 Moderate mitral regurgitation Mild tricuspid regurgitation No pericardial effusion Previewed by: Dr. Alfonzo Merritt DO (Electronically Signed) Final Date: 19 Feb 2025 13:20
--- NOTE | 2025-02-19 15:50 | P.PN ---
Progress Note - Text Progress Note Date: 02/19/25 Chief Complaint: A-fib with rapid rate This is a very pleasant 65-year-old patient who follows with Dr. Hay. Unremarkable past medical history. Patient had gone to her family doctor with some exertional dyspnea going up the stairs for some time. She was found to be in A-fib with rapid ventricular rate. Denies any chest pain or palpitations. No prior history of A-fib. Patient in the ER was started on IV heparin and IV Cardizem drip. Patient is accompanied by a friend in the ER room. Denies any prior cardiac history. No edema. No chest pain. February 19: Patient seen this morning. Seen by cardiology. Started on Eliquis. Add Lopressor 25 twice daily. Blood pressure was higher this morning. Did asked the patient to ambulate. No chest pain or shortness of breath. Active Medications Acetaminophen (Acetaminophen Tab 325 Mg Tab) 650 mg PO Q6HR PRN PRN Reason: Mild Pain or Fever > 100.5 Last Admin: 02/18/25 04:16 Dose: 650 mg Al Hydroxide/Mg Hydroxide (Mag Hydrox/Al Hydrox/Simeth 30 Ml Cup) 15 ml PO Q6HR PRN PRN Reason: Indigestion Apixaban (Apixaban 5 Mg Tab) 5 mg PO BID [facility]; Protocol Last Admin: 02/19/25 10:16 Dose: 5 mg Calcium Carbonate/Glycine (Calcium Carbonate 500 Mg Chewable) 1,000 mg PO Q4HR PRN PRN Reason: Dyspepsia Famotidine (Famotidine 20 Mg Tab) 20 mg PO BID [facility] Last Admin: 02/19/25 10:16 Dose: 20 mg Losartan Potassium (Losartan 50 Mg Tab) 50 mg PO DAILY [facility] Last Admin: 02/19/25 10:16 Dose: 50 mg Metoprolol Tartrate (Metoprolol Tartrate 25 Mg Tab) 25 mg PO BID [facility] Last Admin: 02/19/25 10:16 Dose: 25 mg Naloxone HCl (Naloxone 0.4 Mg/Ml 1 Ml Vial) 0.2 mg IV Q2M PRN PRN Reason: Opioid Reversal Ondansetron HCl (Ondansetron 4 Mg/2 Ml Vial) 4 mg IVP Q8HR PRN PRN Reason: Nausea And Vomiting Tramadol HCl (Tramadol 50 Mg Tab) 50 mg PO Q6H PRN PRN Reason: Moderate Pain (Scale 4 to 6) Social history: Retired from working at [employer] in [employer] [facility] [employer] [employer]. Denies any history of smoking alcohol. Lives with her Physical examination: VITAL SIGNS: 98, 80, 18, 139 x 95, 91% room air GENERAL: Laying in bed, comfortable EYES: Pupils equal. Conjunctiva adelaida l. HEENT: External appearance of nose and ears normal, oral cavity grossly normal. NECK: JVD not raised; masses not palpable. HEART: Heart sounds irregular; no edema]. LUNGS: Respiratory rate normal; clear to auscultation. ABDOMEN: Soft, nontender, liver spleen not palpable, no masses palpable. PSYCH: Alert and oriented x3; mood and affect adelaida l. MUSCULOSKELETAL:No Clubbing/cyanosis;muscles-grossly intact INVESTIGATIONS, reviewed in the clinical context: 2D echocardiogram: EF 40%. Mild to moderate pulmonary hypertension. Moderate MR. February 17, 2025: White count 8.1 hemoglobin 14.3 platelets 258 sodium 141 potassium 3.6 creatinine 0.84 Troponin I less than 0.012 x 3 proBNP 1440 TSH 0.867 EKG tracing personally reviewed by me-atrial fibrillation. Rate 113 CT angio chest: Negative PE. Bibasilar subpleural groundglass opacities. Reactive mediastinal lymphadenopathy. Assessment plan: - Atrial fibrillation, likely persistent given that patient's been short of breath with exertion for some time. Uncontrolled on presentation: Better today IV Cardizem drip. IV heparin.: Susannah Lopressor 25 mg twice daily. Eliquis - IV heparin monitoring: Discontinue -Cardiomyopathy. EF 40% possibly atrial fibrillation related. Add Aldactone 25 mg/day - Mild to moderate secondary pulm hypertension. Moderate MR - Abnormal CT scan showing bibasilar segmental groundglass opacity. High resolution CT chest - Obesity BMI 33.7 Outpatient weight loss measures Discussed with patient. Add Aldactone. High-resolution CT chest Past Medical History Past Medical History: No Reported History History of Any Multi-Drug Resistant Organisms: None Reported Past Surgical History: Cholecystectomy, Tubal Ligation Additional Past Surgical History / Comment(s): cervical fusion Past Psychological History: No Psychological Hx Reported Past Alcohol Use History: None Reported Past Drug Use History: None Reported
--- NOTE | 2025-02-19 16:32 | CT ---
EXAMINATION TYPE: CT chest wo con DATE OF EXAM: 02/19/2025 COMPARISON: CTA chest dated 02/17/2025 CLINICAL INDICATION: Female, 65 years old with history of Bibasilar groundglass opacities; PHH, Bibas ilar groundglass opacities. High resolution TECHNIQUE: CT scan of the thorax is performed without IV contrast. CT DLP: 1144.[address] CTDI: mGy Automated exposure control for dose reduction was used. FINDINGS: There are multifocal scattered groundglass opacities primarily within the lung bases There is no pleural effusion or pneumothorax. The great vessels of the chest are normal and there is no mediastinal, hilar or axillary adenopathy. Limited scanning through the upper abdomen reveals no gross abnormality. The osseous structures are intact. IMPRESSION: Scattered groundglass opacities in the lower lobes likely infectious. Short term follow-up CT thorax is recommended to demonstrate complete resolution. [facility], , 02/19/2025 4:29 PM
[2025-02-19] MEDS: SPIRONOLACTONE 25 MG TAB PO SCH (17:10)
[2025-02-20 07:59] VITALS: TEMP 97.5
[2025-02-20] MEDS: METOPROLOL TARTRATE 25 MG TAB PO ONE (09:19)
[2025-02-20 11:03] VITALS: BP 125/83; PULSE 81; RESP 17
--- NOTE | 2025-02-20 11:06 | P.PN ---
Subjective HISTORY OF PRESENT ILLNESS: This is a 65-year-old female with no significant past medical history. 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 We have been asked to see the patient in consultation for new onset atrial fibrillation. Patient examined at the bedside in the ER. Patient states that she was at her primary care physician's office yesterday for an annual routine visit. She denied having any symptoms of shortness of breath, chest pain, dizziness, or palpitations. Patient was found to be in A-fib with RVR. Additionally patient was found to have elevated blood pressures with a systolic greater than 150. Patient was directed to come to the emergency room. The patient denies any known history of atrial fibrillation. She remains in atrial fibrillation at the time of examination with a heart rate in the 80s. Blood pressure remains elevated. DIAGNOSTICS: - EKG reveals A-fib with RVR. - Chest CTA: Negative for pulmonary embolism. Bibasilar subpleural groundglass opacities suggesting atypical pulmonary infection versus pulmonary edema. Reactive mediastinal lymphadenopathy likely secondary to #2. - Laboratory data: WBC 8.19. Hemoglobin 14.3. Platelet count 258. D-dimer 0.63. Sodium 140. Potassium 3.6. BUN 15. Creatinine 0.84. Troponin negative x 3. proBNP 1440. TSH 0.867. - Current home cardiac medications include none. - No previous echocardiogram, stress test, or cardiac catheterization available in EMR for review 02/19/2025 Patient examined this morning at the bedside. Patient currently denies chest pain or pressure. She denies shortness of breath. Patient remains in atrial fibrillation with controlled ventricular rate. 2D echo remains pending. Blood pressure stable with a recent reading of 139/95. 02/20/2025 Patient examined this morning at the bedside. Patient currently denies chest pain or pressure. She denies shortness of breath. Vital signs are stable. Echocardiogram completed revealing ejection fraction 40%, moderate MR, mild TR PHYSICAL EXAM: VITAL SIGNS: Reviewed. GENERAL: Well-developed in no acute distress. HEENT: Head is normocephalic. Pupils are equal, round. Sclerae anicteric. Mucous membranes of the mouth are moist. Neck supple. No JVD or thyromegaly LUNGS: Respirations even and unlabored. Lungs essentially clear to auscultation bilaterally. HEART: Irregular rate and rhythm. S1 and S2 heard. ABDOMEN: Soft. Nondistended. Nontender. EXTREMITIES: Normal range of motion. No clubbing or cyanosis. Peripheral pulses intact. No lower extremity edema NEUROLOGIC: Awake and alert. Oriented x 3. ASSESSMENT: New onset atrial fibrillation with RVR Hypertension Obesity: BMI 33.7 Cardiomyopathy, 40%, ischemic versus nonischemic Moderate mitral regurgitation PLAN: Continue Eliquis, losartan, Aldactone, and metoprolol Increase metoprolol tartrate to 50 mg twice a day Patient is stable for discharge home today from a cardiac standpoint Patient to follow-up outpatient in the office with Dr. Das in 3 weeks Nurse practitioner note has been reviewed by physician. Signing provider agrees with the documented findings, assessment, and plan of care documented by SOFTWARE QA SYSTEM SPECIALIST as a scribe. Objective - Vital Signs Vital signs: Vital Signs Temp 97.5 F L 02/20/25 07:56 Pulse 81 02/20/25 11:01 Resp 17 02/20/25 11:01 BP 125/83 02/20/25 11:01 Pulse Ox 98 02/20/25 11:01 FiO2 Intake & Output 02/19/25 02/20/25 02/20/25 18:59 06:59 18:59 Intake Total 540 120 Balance 540 120 Weight 97.2 kg Intake: Oral 540 120 Other: Voiding Method Toilet Toilet # Voids 1 1 - Labs CBC & Chem 7: 02/17/25 16:21 02/17/25 16:21
--- NOTE | 2025-02-20 17:13 | P.DS ---
Providers Date of admission: 02/17/25 20:17 Expected date of discharge: 02/20/25 Attending physician: Oziel Power Consults: 02/17/25 20:14 Consult Physician Urgent Consulting Provider: [facility] Consult Reason/Comments: new onset a fib Do you want consulting provider notified?: Yes, Notify in am Primary care physician: [facility] Course: Chief Complaint: A-fib with rapid rate This is a very pleasant 65-year-old patient who follows with Dr. Hay. Unremarkable past medical history. Patient had gone to her family doctor with some exertional dyspnea going up the stairs for some time. She was found to be in A-fib with rapid ventricular rate. Denies any chest pain or palpitations. No prior history of A-fib. Patient in the ER was started on IV heparin and IV Cardizem drip. Patient is accompanied by a friend in the ER room. Denies any prior cardiac history. No edema. No chest pain. February 19: Patient seen this morning. Seen by cardiology. Started on Eliquis. Add Lopressor 25 twice daily. Blood pressure was higher this morning. Did asked the patient to ambulate. No chest pain or shortness of breath. February 20: Patient feeling well. Blood pressure controlled. 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 She was hospitalized for the same. She had X knife treatment of the same. She has some short-term memory loss from the same. I did explain that taking a blood thinner to suppress some risk but she has been stable for many years. After discussing the same with her she is agreed to continue to take Eliquis. I informed her pt skilled Dr. Didi Das of the same. Patient to follow-up with him in the office. CT chest results were discussed. She should follow-up with hotel dining room cashier outpatient. Nonspecific findings in the lower lobes of the chest. 2D echo results discussed Discussion and discharge planning more than 35 minutes Social history: Retired from working at [employer] in [place]. Denies any history of smoking alcohol. Lives with her Physical examination: VITAL SIGNS: 97.5, 81, 17, 11/15/1982, 98% room air GENERAL: Sitting up in chair, comfortable EYES: Pupils equal. Conjunctiva adelaida l. HEENT: External appearance of nose and ears normal, oral cavity grossly normal. NECK: JVD not raised; masses not palpable. HEART: Heart sounds irregular; no edema]. LUNGS: Respiratory rate normal; clear to auscultation. ABDOMEN: Soft, nontender, liver spleen not palpable, no masses palpable. PSYCH: Alert and oriented x3; mood and affect adelaida l. MUSCULOSKELETAL:No Clubbing/cyanosis;muscles-grossly intact INVESTIGATIONS, reviewed in the clinical context: 2D echocardiogram: EF 40%. Mild to moderate pulmonary hypertension. Moderate MR. February 17, 2025: White count 8.1 hemoglobin 14.3 platelets 258 sodium 141 potassium 3.6 creatinine 0.84 Troponin I less than 0.012 x 3 proBNP 1440 TSH 0.867 EKG tracing personally reviewed by me-atrial fibrillation. Rate 113 CT angio chest: Negative PE. Bibasilar subpleural groundglass opacities. Reactive mediastinal lymphadenopathy. Assessment plan: - Atrial fibrillation, likely persistent given that patient's been short of breath with exertion for some time. Uncontrolled on presentation: Rate controlled IV Cardizem drip. IV heparin.: Susannah Lopressor 25 mg twice daily. Eliquis - IV heparin monitoring: Discontinue -Cardiomyopathy. EF 40% possibly atrial fibrillation related. Aldactone 25 mg/day - Mild to moderate secondary pulm hypertension. Moderate MR - Abnormal CT scan showing bibasilar segmental groundglass opacity. High resolution CT chest: Showing similar results Patient to follow-up with pulmonary outpatient - Obesity BMI 33.7 Outpatient weight loss measures Disposition: Home Past Medical History Past Medical History: No Reported History History of Any Multi-Drug Resistant Organisms: None Reported Past Surgical History: Cholecystectomy, Tubal Ligation Additional Past Surgical History / Comment(s): cervical fusion Past Psychological History: No Psychological Hx Reported Past Alcohol Use History: None Reported Past Drug Use History: None Reported Plan - Discharge Summary New Discharge Prescriptions: New Spironolactone [Aldactone] 25 mg PO DAILY #30 tab Losartan [Cozaar] 50 mg PO HS #30 tab Metoprolol Tartrate [Lopressor] 50 mg PO BID #60 tab Apixaban [Eliquis] 5 mg PO BID #60 tab Discontinued Potassium Chloride ER [K-Dur 10] 10 meq PO DAILY Discharge Medication List Apixaban [Eliquis] 5 mg PO BID #60 tab 02/20/25 [Rx] Losartan [Cozaar] 50 mg PO HS #30 tab 05/02/25 [Rx] Metoprolol Tartrate [Lopressor] 50 mg PO BID #60 tab 02/20/25 [Rx] Spironolactone [Aldactone] 25 mg PO DAILY #30 tab 02/20/25 [Rx] Follow up Appointment(s)/Referral(s): Thomas Hay DO [Primary Care Provider] - 02/23/25 4:20 pm Terry Das MD [STAFF PHYSICIAN] - 3 Weeks (Office will call you with an appointment with Dr. Merritt. ) Patient Instructions/Handouts: A-fib (Atrial Fibrillation) (DC) Discharge Disposition: HOME SELF-CARE
[2025-02-20] MEDS ORDERED: METOPROLOL TARTRATE 50 MG TAB PO SCH (21:00)
== END 2025-02-20 13:15 | disposition home or self-care (01) | DRG 310 ==
LOC: EC 16:06 → 3SCARD 20:17
PROVIDERS: ADMIT Hospitalist; ATTEND Hospitalist
DX: I48.19 Other persistent atrial fibrillation (principal); I27.20 Pulmonary hypertension, unspecified; E66.9 Obesity, unspecified; I10 Essential (primary) hypertension; I34.0 Nonrheumatic mitral (valve) insufficiency; I42.8 Other cardiomyopathies; I25.5 Ischemic cardiomyopathy; Z68.33 Body mass index [BMI] 33.0-33.9, adult; R59.0 Localized enlarged lymph nodes; Z79.899 Other long term (current) drug therapy; Z90.49 Acquired absence of other specified parts of digestive tract; Z98.51 Tubal ligation status
CPT/HCPCS: 36415; 71250; 71275; 80053; 83735; 83880; 84443; 84484; 85025; 85379; 85610; 85730; 93005; 93306; 96361; 96365; 96366; 96368; 99285

== ENCOUNTER → 2025-03-31 | Outpatient (CLI) | payer MEDICARE, BC ==
--- NOTE | 2025-03-31 08:18 | MM ---
Reason for Exam: Screening (asymptomatic). Last mammogram was performed 1 year(s) and 4 month(s) ago. Patient History: Menarche at age 11. First Full-Term at age 18. Postmenopausal. Patient has history of breast feeding. Patient used Hormonal Contraceptives for 6 years. Risk Values: Kiara 5 year model risk: 1.5%. NCI Lifetime model risk: 5.2%. Prior Study Comparison: 05/10/2016 Bilateral Screening Mammogram, [facility]. 08/09/2022 Bilateral MG screening mammo w CAD, [facility]. 11/27/2023 Bilateral MG 3D screening mammo w/cad, [facility]. Tissue Density: There are scattered areas of fibroglandular density. Findings: Analyzed By CAD. Benign-appearing vascular calcification bilaterally is redemonstrated. Benign-appearing bilateral axillary lymph nodes are again seen. There is no suspicious group of microcalcifications or new suspicious mass in either breast. Overall Assessment: Benign, BI-RAD 2 Management: Screening Mammogram of both breasts in 1 year. . Patient should continue monthly self-breast exams. A clinical breast exam by your physician is recommended on an annual basis. This exam should not preclude additional follow-up of suspicious palpable abnormalities. Note on Kiara scores and lifetime risk: 1. A Kiara score greater than 3% is considered moderate risk. If this is the case, consider specialist referral to assess eligibility for a risk reducing agent. 2. If overall lifetime risk for the development of breast cancer is 20% or higher, the patient may qualify for future screening with alternating mammogram and breast MRI. [facility], , 03/31/2025 8:15 AM. Electronically signed and approved by: Phill Colvin M.D.
== END | disposition home or self-care (01) ==
LOC: RADMAMWWP 07:09
PROVIDERS: ATTEND Family Medicine
DX: Z12.31 Encounter for screening mammogram for malignant neoplasm of breast (principal); R92.323 Mammographic fibroglandular density, bilateral breasts; Z78.0 Asymptomatic menopausal state; Z92.0 Personal history of contraception
CPT/HCPCS: 77063; 77067

== ENCOUNTER 2025-04-06 05:47 | Day surgery (SDC) | payer MEDICARE, BC ==
[2025-04-01 16:09] VITALS: BMI 32.8
[~2025-04-06 05:47] MED LIST: SODIUM CHLORIDE 0.9% 500 ML 500 ML IV SCH
[2025-04-06] MEDS ORDERED: LACTATED RINGERS 1,000 ML IV SCH (06:32)
[2025-04-06] MEDS: SODIUM CHLORIDE 0.9% 500 ML 500 ML IV ONE (06:45)
[2025-04-06] MEDS ORDERED: PROPOFOL 10 MG/ML 20 ML VIAL IV ONE (07:08)
[2025-04-06 07:14] LABS: African American GFR (CKD) 68 (>60 ml/min/1.73 sqM); Anion Gap 10 mmol/L; Blood Urea Nitrogen 18 mg/dL (7-17); Calcium 9.7 mg/dL (8.4-10.2); Carbon Dioxide 22 mmol/L (22-30); Chloride 108 mmol/L (98-107); Glucose 104 mg/dL (74-99); Non-African American GFR(CKD) 59 (>60 ml/min/1.73 sqM); Sodium 140 mmol/L (137-145)
--- NOTE | 2025-04-06 07:24 | P.PCN ---
Description of Procedure: Procedure performed: Synchronized cardioversion Moderate conscious sedation: Moderate conscious sedation was supplied by anesthesia, see separate report. Complications: none Indications: Persistent atrial fibrillation PROCEDURE: After the risks, benefits and alternatives of the above mentioned procedure was explained in detail with the patient, informed consent was obtained. Patient was brought to the lab in a fasting state. Patient was given sedation by anesthesia, see separate report. Patient had been taking anticoagu lation since her prior JONO cardioversion without missing any doses and therefore patient underwent synchronized cardioversion x 1 with 200J with resultant sinus rhythm. Patient tolerated the procedure well. Patient was transferred to the post procedure area in stable and satisfactory condition.
[2025-04-06 07:31] LABS: Potassium 4.5 mmol/L (3.5-5.1)
[2025-04-06 07:33] VITALS: TEMP 97.7
[2025-04-06 08:31] VITALS: BP 95/73; PULSE 61; RESP 16
== END 2025-04-06 08:52 | disposition home or self-care (01) ==
LOC: OR 05:47
PROVIDERS: ATTEND Internal Medicine
DX: I48.19 Other persistent atrial fibrillation (principal); I10 Essential (primary) hypertension; I42.9 Cardiomyopathy, unspecified; I67.1 Cerebral aneurysm, nonruptured; Z79.01 Long term (current) use of anticoagulants; Z79.899 Other long term (current) drug therapy; Z82.49 Family history of ischemic heart disease and other diseases of the circulatory system
CPT/HCPCS: 92960; 80048; J2704